=== PATIENT | female | born 1965 | race Caucasian/White ===

== ENCOUNTER 2019-07-06 16:50 | Emergency (ER) | payer BC ==
[2019-07-06 17:12] VITALS: PULSE 76; TEMP 98.7; BMI 31.5
--- NOTE | 2019-07-06 17:35 | PDOC ---
History of Present Illness - General Chief Complaint: Redness To Affected Area Stated Complaint: REDNESS TO RIGHT HAND Time Seen by Provider: 07/06/19 17:34 History Source: Patient - History of Present Illness Initial Comments: 07/06/19 17:39 Pt presents to the ED complaining of redness and swelling to the R hand that began two days ago. Patient got an insect bite three days ago, and awoke the next morning with a red and swollen hand. Today, she noted that the redness and swelling was progressing down her thumb to her forearm. Patient states that the area is slightly tender to the touch, but otherwise has minimal pain. Denies fever, nausea or vomiting or other systemic signs of infection. Past History - Past Medical History Allergies/Adverse Reactions: Allergies Allergy/AdvReac Type Severity Reaction Status Date / Time No Known Allergies Allergy Verified 07/06/19 16:51 Home Medications: Ambulatory Orders Fluoxetine HCl [Prozac] 40 mg PO DAILY 07/06/19 COPD: No Psychiatric Problems: Yes (ANXIETY, DEPRESSION) - Suicide/Smoking/Psychosocial Hx Smoking History: Never smoked Have you smoked in the past 12 months: No Information on smoking cessation initiated: No Hx Alcohol Use: No Review of Systems - Review of Systems Able to Perform ROS?: Yes Is the patient limited Hungarian proficient: No Constitutional: No: Symptoms Reported, See HPI, Chills, Diaphoresis, Fever, Loss of Appetite, Malaise, Night Sweats, Weakness, Weight Stable, Unintentional Wgt. Loss, Unexplained wgt Loss, Other HEENTM: No: Symptoms Reported, See HPI, Eye Pain, Blurred Vision, Tearing, Recent change in vision, Double Vision, Cataracts, Ear Pain, Ocular Prothesis, Ear Discharge, Nose Pain, Nose Congestion, Tinnitus, Nose Bleeding, Hearing Loss , Throat Pain, Throat Swelling, Mouth Pain, Dental Problems, Difficulty Swallowing, Mouth Swelling, Other Respiratory: No: Symptoms reported, See HPI, Cough, Orthopnea, Shortness of Breath, SOB with Exertion, SOB at Rest, Stridor, Wheezing, Productive cough, Hemoptysis, Other Cardiac (ROS): No: Symptoms Reported, See HPI, Chest Pain, Edema, Irregular Heart Rate, Lightheadedness, Palpitations, Syncope, Chest Tightness, Other ABD/GI: No: Symptoms Reported, See HPI, Abdominal Distended, Abd. Pain w/ defecation, Blood Streaked Bowels, Constipated, Diarrhea, Difficulty Swallowing , Nausea, Poor Appetite, Poor Fluid Intake, Rectal Bleeding, Vomiting, Indigestion, Abdominal cramping, Tarry Stools, Other : No: Symptoms Reported, See HPI, Burning, Dysuria, Discharge, Frequency, Flank Pain, Hematuria, Incontinence, Pain, Urgency, Testicular Mass, Testicular Swelling, Lesions, Testicular Pain, Other Musculoskeletal: No: Symptoms Reported, See HPI, Back Pain, Gout, Joint Pain, Joint Swelling, Muscle Pain, Muscle Weakness, Neck Pain, Joint Stiffness, Other Integumentary: Yes: Erythema *Physical Exam - Vital Signs Last Vital Signs Temp Pulse Resp BP Pulse Ox 98.7 F 76 18 150/115 H 98 07/06/19 16:50 07/06/19 16:50 07/06/19 16:50 07/06/19 16:50 07/06/19 16:50 - Physical Exam Comments: 07/06/19 17:44 gen: alert, NAD HEENT: normocephalic, atraumatic CV: rrr no m/r/g Pulm: CTA b/l ext: RUE: + area of erythema with minimal tenderness and swelling over the entire dorsum of the hand, from the wrist to the MCP joints. + area of erythema on the lateral aspect of the thumb, extending to just past the ulnar side of the wrist. Medical Decision Making - Medical Decision Making 07/06/19 17:53 Pt presents to the ED with apparent cellulitis to the R hand. She has minimal pain, full ROM of the wrist and fingers and no systemic signs of infection. WIll check labs and likely discharge home if patient does not have severely elevated wbc count. Will give IV antibiotics in the ED and discharge with rx for bactrim and instructions to return immediately to the ED for worsening symptoms. Patient will return in two days for cellulitis check. *DC/Admit/Observation/Transfer Diagnosis at time of Disposition: Cellulitis of hand - Discharge Dispostion Disposition: HOME Condition at time of disposition: Good Decision to Admit order: No - Referrals Referrals: Regan Antony MD [Primary Care Provider] - - Patient Instructions Printed Discharge Instructions: DI for Cellulitis -- Adult Additional Instructions: you came to the ED for a skin infection in your hand. you were given antibiotics in the ED, and must continue to take antibiotics at home. You should return to the ED in two days, so that we can check on your hand and make sure the infection is getting better. Return to the ED immediately for fever, nausea and vomiting, infection that is spreading. Make sure you take the antibiotics until they are all gone. - Post Discharge Activity
[2019-07-06] MEDS ORDERED: CEFTRIAXONE 1,000 MG in DEXTROSE 5%-WATER - 50 ML IVPB ONE (17:38)
[2019-07-06 18:13] LABS: BASO % 0.6 % (0-2.0); EOS % 1.3 % (0-4.5); HEMATOCRIT 41.8 % (32.4-45.2); HEMOGLOBIN 13.9 GM/dl (10.7-15.3); LYMPH % 29.2 % (8-40); MCH 33.1 pg (25.7-33.7); MCHC 33.3 g/dl (32.0-36.0); MEAN CELL VOLUME 99.6 fl (80-96); MEAN PLT VOLUME 7.3 fl (7.5-11.1); MONO % 9.1 % (3.8-10.2); NEUT % 59.8 % (42.8-82.8); PLATELET COUNT 323 K/MM3 (134-434); RDW 12.4 % (11.6-15.6); WHITE BLOOD COUNT 7.8 K/mm3 (4.0-10.8)
[2019-07-06] MEDS ORDERED: cefTRIAXone SODIUM 1 GM VIAL ONE (18:13)
--- NOTE | 2019-07-06 18:20 | PDOC ---
*Physical Exam - Vital Signs Last Vital Signs Temp Pulse Resp BP Pulse Ox 98.7 F 76 18 150/115 H 98 07/06/19 16:50 07/06/19 16:50 07/06/19 16:50 07/06/19 16:50 07/06/19 16:50 ED Treatment Course - LABORATORY CBC & Chemistry Diagram: 07/06/19 17:55 07/06/19 17:55 - ADDITIONAL ORDERS Additional order review: 07/06/19 17:55 RBC 4.20 MCV 99.6 H MCHC 33.3 RDW 12.4 MPV 7.3 L Neutrophils % 59.8 Lymphocytes % 29.2 Monocytes % 9.1 Eosinophils % 1.3 Basophils % 0.6 Progress Note - Progress Note Progress Note: Care of this patient was transferred to [place] from Dr. Mcdonald at 1800 hrs. Patient is a 53-year-old female who comes in complaining of right hand pain. Patient received a bug bite a couple of days ago and has gotten progressively more swollen. Patient has a CBC pending to rule out systemic spread. Patient receiving ceftriaxone if CBC is normal or mildly elevated patient will be discharged home on Bactrim and will return in 2 days for a wound check. *DC/Admit/Observation/Transfer Diagnosis at time of Disposition: Cellulitis of hand - Discharge Dispostion Disposition: HOME Condition at time of disposition: Good - Prescriptions Prescriptions: Sulfamethoxazole/Trimethoprim [Bactrim Ds -] 1 tab PO BID #14 tablet - Referrals Referrals: Regan Antony MD [Primary Care Provider] - - Patient Instructions Printed Discharge Instructions: DI for Cellulitis -- Adult Additional Instructions: you came to the ED for a skin infection in your hand. you were given antibiotics in the ED, and must continue to take antibiotics at home. You should return to the ED in two days, so that we can check on your hand and make sure the infection is getting better. Return to the ED immediately for fever, nausea and vomiting, infection that is spreading. Make sure you take the antibiotics until they are all gone. - Post Discharge Activity
[2019-07-06 18:28] LABS: BILIRUBIN,TOTAL 0.4 mg/dl (0.2-1); CALCIUM 8.9 mg/dl (8.5-10); CREATININE 0.7 mg/dl (0.55-1.3); POTASSIUM 3.3 mmol/L (3.5-5.1); TOT PROT 7.2 g/dl (6.4-8.2)
[2019-07-06 19:01] VITALS: BP 148/93
== END 2019-07-06 19:00 | disposition home or self-care (01) ==
LOC: FER 16:50
DX: L03.113 Cellulitis of right upper limb (principal); F41.8 Other specified anxiety disorders
CPT/HCPCS: 36415; 80053; 85025; 99283-25

== ENCOUNTER 2019-12-31 16:30 | Emergency (ER) | payer BC ==
[2019-12-31 16:55] VITALS: BP 154/102; PULSE 88; TEMP 98; BMI 30.1
--- NOTE | 2019-12-31 17:48 | PDOC ---
History of Present Illness - General Chief Complaint: Syncope/Near Syncope Stated Complaint: COULD NOT WAKE UP Time Seen by Provider: 12/31/19 16:46 History Source: Patient, Spouse - History of Present Illness Initial Comments: Ms. Joyce is a 54 y/o woman w/hx EtOH use disorder p/w syncopal episode at h ome. She reports two days of nausea, nbnb vomiting, and non-bloody diarrhea, and today becoming lightheaded immediately after an episode of vomiting. She reports lowering herself onto a chair and losing consciousness momentarily. Her witnessed the event and was unable to rouse her for a few seconds, at which point she awoke and immediately returned to baseline mental status. She reports approx x6 vomiting and x6 diarrhea today. She denies fall, head or neck injury. She reports drinking approx 1 bottle of wine daily. Past History - Past Medical History Allergies/Adverse Reactions: Allergies Allergy/AdvReac Type Severity Reaction Status Date / Time No Known Allergies Allergy Verified 12/31/19 18:09 Home Medications: Ambulatory Orders Fluoxetine HCl [Prozac] 40 mg PO DAILY 07/06/19 Fluoxetine HCl [Prozac] 20 mg PO BID 12/31/19 Lorazepam [Ativan] 1 mg PO HS 12/31/19 Zolpidem Tartrate [Ambien] 10 mg PO HS 12/31/19 COPD: No Psychiatric Problems: Yes (ANXIETY, DEPRESSION) - Psycho Social/Smoking Cessation Hx Smoking History: Current every day smoker Have you smoked in the past 12 months: Yes Information on smoking cessation initiated: Yes Hx Alcohol Use: Yes Drug/Substance Use Hx: Yes (PRESCRIPTION) Review of Systems - Review of Systems Able to Perform ROS?: Yes Comments:: ROS: GENERAL/CONSTITUTIONAL: No fever or chills. No weakness. HEAD, EYES, EARS, NOSE AND THROAT: No change in vision. No ear pain or discharge. No sore throat. CARDIOVASCULAR: No chest pain or shortness of breath RESPIRATORY: No cough, wheezing, or hemoptysis. GASTROINTESTINAL: Nausea, vomiting, diarrhea. No constipation. GENITOURINARY: No dysuria, frequency, or change in urination. MUSCULOSKELETAL: No joint or muscle swelling or pain. No neck or back pain. SKIN: No rash NEUROLOGIC: Syncope. No headache, vertigo, or change in strength/sensation. ENDOCRINE: No increased thirst. No abnormal weight change HEMATOLOGIC/LYMPHATIC: No anemia, easy bleeding, or history of blood clots. ALLERGIC/IMMUNOLOGIC: No hives or skin allergy. *Physical Exam - Vital Signs Last Vital Signs Temp Pulse Resp BP Pulse Ox 98.0 F 88 16 154/102 H 98 12/31/19 16:44 12/31/19 16:44 12/31/19 16:44 12/31/19 16:44 12/31/19 16:44 - Physical Exam PE: GENERAL: Awake, alert, and fully oriented, in no acute distress HEAD: No signs of trauma, normocephalic, atraumatic EYES: PERRLA, EOMI, sclera anicteric, conjunctiva clear ENT: Auricles normal inspection, hearing grossly normal, nares patent, oropharynx clear without exudates. Moist mucosa NECK: Normal ROM, supple, no lymphadenopathy, JVD, or masses LUNGS: No distress, speaks full sentences, clear to auscultation bilaterally HEART: Regular rate and rhythm, normal S1 and S2, no murmurs, rubs or gallops, peripheral pulses normal and equal bilaterally. ABDOMEN: Soft, nontender, normoactive bowel sounds. No guarding, no rebound. No masses EXTREMITIES : Normal inspection, Normal range of motion, no edema. No clubbing or cyanosis NEUROLOGICAL: Cranial nerves II through XII grossly intact. Normal speech, normal gait, no focal sensorimotor deficits SKIN: Warm, Dry, normal turgor, no rashes or lesions noted ED Treatment Course - LABORATORY CBC & Chemistry Diagram: 12/31/19 18:30 12/31/19 20:55 Medical Decision Making - Medical Decision Making 54F w/hx EtOH use disorder p/w two days of n/v/d and brief syncopal episode today immediately s/p vomiting. Ddx includes vasovagal syncope, dehydration, electrolyte disturbance. Plan: CBC CMP EKG CXR Cardiac profile UA Urine culture CT Head without contrast Dispo: Pending --- CBC - Hg 15.9 CMP - K 2.7 Troponin - negative Plan for K repletion Dispo pending CT head. Case signed out during shift change to night team. 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 Return to the emergency department immediately with ANY new, persistent or wo rsening symptoms. Continue any medications as previously prescribed by your physician. You should follow up with your primary doctor as soon as possible regarding today's emergency department visit. . Please make sure your doctor reviews the results of your emergency evaluation. Thank you for coming to the Emergency Department today for your care. It was a pleasure to see you today. Please note that your evaluation is INCOMPLETE until you follow-up with your doctor. - Post Discharge Activity
[2019-12-31] MEDS ORDERED: LACTATED RINGERS SOLUTION 1000 ML INFUS.BAG IV ONE (17:56)
--- NOTE | 2019-12-31 18:21 | PDOC ---
Attending Attestation - Resident Resident Name: Darren Castro - ED Attending Attestation I have performed the following: I have examined & evaluated the patient, The case was reviewed & discussed with the resident, I agree w/resident's findings & plan, Exceptions are as noted - HPI HPI: 12/31/19 18:17 Patient states that she has had a "stomach virus" for 2 days, with nausea vomiting and diarrhea. Others at her workplace have a similar illness. She came home from work today, ate some supper, then soon vomited a large amount of undigested food. Immediately afterward, she felt lightheaded, "cold and clammy ", experienced numbness and tingling of her hands and fingers, sat in a chair and momentarily lost consciousness. She awoke immediately without confusion and is now asymptomatic. No significant cardiac neurologic or GI past medical history. She does drink alcohol, approximately 1 bottle of wine each evening, and takes benzodiazepines, SSRIs, and Ambien. - Physicial Exam PE: 12/31/19 18:19 Physical exam: Afebrile, vital signs stable except for mildly elevated blood pressure in the 150/100 range. PERRLA, fundi benign, ENT clear Neck supple without bruit mass or nodes Lungs clear CV regular without murmur rub or gallop Abdomen nondistended, normal bowel sounds, soft without mass tenderness organomegaly Neurological C2 to 12 intact. Strength full and symmetric. No focal sensory or motor deficits. Cerebellum intact. Gait stable and unimpaired 12/31/19 18:44 - Medical Decision Making 12/31/19 18:19 Assessment: Symptoms are most consistent with vasovagal syncope. Acute cardiac or neurologic event is highly unlikely. Mild dehydration and alcohol/ prescription drugs could be factors. Plan: EKG and enzymes, CBC and chemistries, head CT, observation, further evaluation depending on results or the appearance of further symptoms. 12/31/19 18:44 01/02/20 07:22 Potassium was found to be 2.7. There is a prolonged QT on EKG, possibly related. Potassium supplementation begun. Signed out to Dr. Turner at 7 PM pending potassium repletion, repeat EKG, and further evaluation and treatment.
[2019-12-31 18:44] LABS: BASO % 0.2 % (0-2.0); EOS % 0.2 % (0-4.5); HEMATOCRIT 47.1 % (32.4-45.2); HEMOGLOBIN 15.9 GM/dl (10.7-15.3); LYMPH % 9.6 % (8-40); MCH 33.4 pg (25.7-33.7); MCHC 33.8 g/dl (32.0-36.0); MEAN PLT VOLUME 7.1 fl (7.5-11.1); MONO % 6.5 % (3.8-10.2); NEUT % 83.5 % (42.8-82.8); PLATELET COUNT 371 K/MM3 (134-434); RBC 4.76 M/mm3 (3.60-5.2); RDW 13.3 % (11.6-15.6); WHITE BLOOD COUNT 10.2 K/mm3 (4.0-10.8)
[2019-12-31 18:53] LABS: ALBUMIN 4.2 g/dl (3.4-5.0); BILIRUBIN,TOTAL 1.3 mg/dl (0.2-1); CALCIUM 8.9 mg/dl (8.5-10); CREATININE 0.7 mg/dl (0.55-1.3); TOT PROT 7.5 g/dl (6.4-8.2)
[2019-12-31 18:57] LABS: POTASSIUM 2.7 mmol/L (3.5-5.1)
[2019-12-31] MEDS ORDERED: POTASSIUM CHLORIDE ORAL LIQUID 20 MEQ/15 ML PO ONE (18:57)
[2019-12-31] MEDS: KCL 10 MEQ IVPB 10 MEQ/100 ML INFUS.BAG IVPB SCH ×2 (19:00→20:00)
[2019-12-31] MEDS ORDERED: KCL 10 MEQ IVPB 20 MEQ/200 ML INFUS.BAG IVPB ONE (19:06)
[2019-12-31] MEDS ORDERED: POTASSIUM CHLORIDE ORAL LIQUID 20 MEQ/15 ML ONE (19:06)
--- NOTE | 2019-12-31 19:09 | PDOC ---
*Physical Exam - Vital Signs Last Vital Signs Temp Pulse Resp BP Pulse Ox 98.0 F 88 16 154/102 H 98 12/31/19 16:44 12/31/19 16:44 12/31/19 16:44 12/31/19 16:44 12/31/19 16:44 ED Treatment Course - LABORATORY CBC & Chemistry Diagram: 12/31/19 18:30 12/31/19 20:55 - ADDITIONAL ORDERS Additional order review: Laboratory Results 12/31/19 12/31/19 12/31/19 18:30 18:30 18:30 Sodium 132 L Potassium 2.7 L* Chloride 92 L Carbon Dioxide 30 Anion Gap 10 BUN 9.0 Creatinine 0.7 Est GFR (CKD-EPI)AfAm 113.05 Est GFR (CKD-EPI)NonAf 97.54 Random Glucose 122 H Calcium 8.9 Total Bilirubin 1.3 H AST 82 H ALT 67 H Alkaline Phosphatase 78 Creatine Kinase 64 Troponin I < 0.03 Total Protein 7.5 Albumin 4.2 Alcohol, Quantitative < 3 12/31/19 18:30 RBC 4.76 MCV 99.0 H MCHC 33.8 RDW 13.3 MPV 7.1 L Neutrophils % 83.5 H Lymphocytes % 9.6 Monocytes % 6.5 Eosinophils % 0.2 Basophils % 0.2 - Medications Given in the ED: ED Medications Discontinued Medications Generic Name Dose Route Start Last Admin Trade Name Freq PRN Reason Stop Dose Admin Lactated Ringer's 1,000 ml 12/31/19 17:56 12/31/19 18:30 Lactated Ringers Solution IV 12/31/19 17:57 1,000 ml ONCE ONE Administration ED Progress Note - Progress Note Progress Note: 12/31/19 19:09 Care of this patient was transferred to [place] from Dr. Jacey rico at 1900 hrs. Patient is a 54-year-old female who has had nausea vomiting and diarrhea. Patient potassium is low most likely secondary to her vomiting. Patient had a near syncope vasovagal type episode post vomiting prior to coming in. Patient is having her potassium repleted otherwise is already feeling better with some IV fluids and antiemetics. Will repeat potassium and EKG prior to discharge patient. 12/31/19 21:17 Post potassium repletion patient's repeat potassium was 3.5. Her EKG however still had QT prolongation so patient was instructed to take a copy of her cardiogram with her and go follow-up with her primary care doctor. 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 Return to the emergency department immediately with ANY new, persistent or worsening symptoms. Continue any medications as previously prescribed by your physician. You should follow up with your primary doctor as soon as possible regarding today's emergency department visit. . Please make sure your doctor reviews the results of your emergency evaluation. Thank you for coming to the Emergency Department today for your care. It was a pleasure to see you today. Please note that your evaluation is INCOMPLETE until you follow-up with your doctor. - Post Discharge Activity
[2019-12-31 20:44] LABS: EPITHELIAL CELLS RARE /hpf
[2019-12-31] MEDS ORDERED: POTASSIUM CHLORIDE TABS 20 MEQ TABLET.ER (FP) PO ONE ×2 (21:16→21:17)
[2019-12-31 22:29] LABS: COCAINE, UR NEGATIVE ng/ml (CUTOFF=300); METHADONE, UR NEGATIVE ng/ml (CUTOFF=300); OPIATES, URI NEGATIVE ng/ml (CUTOFF=300); PHENCYCLIDINE,URINE NEGATIVE ng/ml (CUTOFF=25); URINE AMPHETAMINES NEGATIVE ng/ml (CUTOFF=500); URINE BARBITURATES NEGATIVE ng/ml (CUTOFF=200); URINE BENZODIAZEPINES NEGATIVE ng/ml (CUTOFF=200)
--- NOTE | 2020-01-01 13:04 | EKG ---
Test Reason : Blood Pressure : / mmHG Vent. Rate : 085 BPM Atrial Rate : 085 BPM P-R Int : 168 ms QRS Dur : 104 ms QT Int : 462 ms P-R-T Axes : 050 -46 -03 degrees QTc Int : 549 ms NORMAL SINUS RHYTHM LEFT AXIS DEVIATION PROLONGED QT ABNORMAL ECG NO PREVIOUS ECGS AVAILABLE Confirmed by Fortunato Carrasco MD ([id number]) on 01/01/2020 1:04:20 PM Referred By: Confirmed By:Fortunato Carrasco MD
--- NOTE | 2020-01-01 13:04 | EKG ---
Test Reason : Blood Pressure : / mmHG Vent. Rate : 074 BPM Atrial Rate : 074 BPM P-R Int : 152 ms QRS Dur : 092 ms QT Int : 508 ms P-R-T Axes : 012 -44 -20 degrees QTc Int : 563 ms NORMAL SINUS RHYTHM LEFT AXIS DEVIATION PROLONGED QT ABNORMAL ECG NO PREVIOUS ECGS AVAILABLE Confirmed by Fortunato Carrasco MD ([id number]) on 01/01/2020 1:04:11 PM Referred By: Confirmed By:Fortunato Carrasco MD
== END 2019-12-31 21:32 | disposition home or self-care (01) ==
LOC: FER 16:30
PROC: 3E0337Z Introduction of Electrolytic and Water Balance Substance into Peripheral Vein, Percutaneous Approach (ICD-10-PCS; principal; 2019-12-31)
PROC: 3E033GC Introduction of Other Therapeutic Substance into Peripheral Vein, Percutaneous Approach (ICD-10-PCS; 2019-12-31)
DX: E87.6 Hypokalemia (principal); R11.2 Nausea with vomiting, unspecified
CPT/HCPCS: 36415; 70450-TC; 80053; 80307; 81003; 81015; 82550; 84132; 84484; 85025; 93005; 99285-25